=== PATIENT | male | born 1970 | race Caucasian/White ===

== ENCOUNTER 2017-12-08 16:26 | Emergency (ER) | payer MEDICAID ==
[~2017-12-08] VITALS: Ht 188 cm; Wt 92.6 kg
[~2017-12-08 16:26] MED LIST: PARO40TA PO; TRIA.1%T TOP; WELL150T PO; ZYRT10TA12 PO
[2017-12-08 16:47] VITALS: BP 125/69; PULSE 87; RESP 16; TEMP 98.6; O2SAT 100
[2017-12-08] MEDS ORDERED: PARO40TA2 PO (17:01)
--- NOTE | 2017-12-08 17:57 | PD ---
HPI Chief Complaint: Skin Problem Time Seen by Provider: 17:26 Travel History International Travel<30 days: No Contact w/Intl Traveler<30days: No Traveled to known affect area: No History of Present Illness HPI This is a 47-year-old male here with redness and swelling to his right lower extremity. Symptoms began after he sustained an insect bite to the right lower naik approximately 5-6 days ago. He denies fever chills. He reports the area is painful and pruritic. Pain is nonradiating. Symptom severity is moderate. No aggravating or alleviating factors. PFSH Past Medical History Depression: Yes Diminished Hearing: No Tetanus Vaccination: Unknown Past Surgical History Abdominal Surgery: Yes (HERNIORRHAPHY) Genitourinary Surgery: Yes (UNDESCENDED TESTICLES) Social History Alcohol Use: No Tobacco Use: No Substance Use: No Allergies-Medications (Allergen,Severity, Reaction): Coded Allergies: No Known Allergies (Unverified Adverse Reaction, Unknown, 12/08/17) Reported Meds & Prescriptions Reported Meds & Active Scripts Active Clindamycin (Clindamycin HCl) 300 Mg Cap 300 Mg PO Q6H 10 Days Reported Paroxetine (Paroxetine HCl) 40 Mg Tab 40 Mg PO DAILY Physical Exam Narrative GENERAL: Alert and well-appearing 47-year-old male SKIN: Warm and dry. 5x3 cm area of erythema to the right anterior naik. No fluctuance or induration. No lymphangitis HEAD: Normocephalic. EYES: No injection or drainage. NECK: Supple, trachea midline. CARDIOVASCULAR: Regular rate and rhythm RESPIRATORY: Breath sounds equal bilaterally. No accessory muscle use. GASTROINTESTINAL: Abdomen soft, non-tender, nondistended. MUSCULOSKELETAL: No cyanosis, or edema. Right lower extremely: See skin note above. No swelling. Normal sensation. 2+ DP pulses. BACK: Nontender without obvious deformity. No CVA tenderness. Data Data Last Documented VS Vital Signs Date Time Temp Pulse Resp B/P (MAP) Pulse Ox O2 Delivery O2 Flow Rate FiO2 12/08/17 16:47 98.6 87 16 125/69 (87) 100 MDM Medical Decision Making Medical Screen Exam Complete: Yes Emergency Medical Condition: Yes Differential Diagnosis Cellulitis, contact dermatitis, other Narrative Course 47-year-old male here with cellulitis to the right lower extremity. He is nontoxic appearing. Vital signs stable. He will be discharged home on clindamycin. Diagnosis Primary Impression: Cellulitis Qualified Codes: L03.115 - Cellulitis of right lower limb Referrals: Primary Care Physician Additional Instructions: Antibiotics as directed. Follow-up with her primary doctor. Return if he develop new or worsening symptoms. Scripts Clindamycin (Clindamycin) 300 Mg Cap 300 MG PO Q6H for Infection for 10 Days, #40 CAP 0 Refills Prov: Mari Berkowitz 12/08/17 Disposition: 01 DISCHARGE HOME Condition: Stable Mari Berkowitz Dec 08, 2017 17:57
[2017-12-08] MEDS ORDERED: CLIN300C5 PO (18:30)
== END 2017-12-08 18:48 | disposition home or self-care (01) ==
LOC: PHEFT 16:26
DX: L03.115 Cellulitis of right lower limb (principal); F32.9 Major depressive disorder, single episode, unspecified; Z79.899 Other long term (current) drug therapy
CPT/HCPCS: 99283

== ENCOUNTER 2017-12-17 19:26 | Emergency (ER) | payer MEDICAID ==
[~2017-12-17] VITALS: Ht 188 cm; Wt 92.5 kg
[~2017-12-17 19:26] MED LIST changes: +CLIN300C5 PO; -PARO40TA PO; +PARO40TA2 PO; -TRIA.1%T TOP; -WELL150T PO; -ZYRT10TA12 PO
[2017-12-17 19:44] VITALS: BP 121/63; PULSE 87; RESP 18; TEMP 98.1; O2SAT 98
[2017-12-17] MEDS ORDERED: SULFAMETHOXAZOLE-TRIMETHOPRIM DS 800-160 MG TAB PO ONE (20:30)
[2017-12-17] MEDS ORDERED: CEPHALEXIN MONOHYDRATE 500 MG CAP PO ONE (20:30)
[2017-12-17] MEDS ORDERED: FAMOTIDINE 20 MG TAB PO ONE (20:30)
[2017-12-17] MEDS ORDERED: diphenhydrAMINE HCL 50 MG CAP PO ONE (20:30)
[2017-12-17] MEDS ORDERED: DEXAMETHASONE SOD PHOS 4 MG/ML VIAL IM ONE (20:30)
[2017-12-17] MEDS ORDERED: CEPH-460 PO (20:31)
[2017-12-17] MEDS ORDERED: BACT800T5 PO (20:31)
--- NOTE | 2017-12-17 20:32 | PD ---
HPI Chief Complaint: Allergic/Adverse Reaction Time Seen by Provider: 19:49 Travel History International Travel<30 days: No Contact w/Intl Traveler<30days: No Traveled to known affect area: No History of Present Illness HPI 47-year-old male complains of rash about the chest and the back for 1 day. No respiratory distress. No fever. No pain. Itchiness is present. Patient reports compliance with clindamycin due to cellulitis of the right lower extremity. No new or different medication. No exposure to new soaps or different detergents of any kind potential environmental allergen otherwise. PFSH Past Medical History Depression: Yes Diminished Hearing: No Influenza Vaccination: No ?: Not Past Surgical History Abdominal Surgery: Yes (HERNIORRHAPHY) Genitourinary Surgery: Yes (UNDESCENDED TESTICLES) Social History Alcohol Use: No Tobacco Use: No Substance Use: No Allergies-Medications Reported Meds & Prescriptions Reported Meds & Active Scripts Active Clindamycin (Clindamycin HCl) 300 Mg Cap 300 Mg PO Q6H 10 Days Reported Paroxetine (Paroxetine HCl) 40 Mg Tab 40 Mg PO DAILY Review of Systems General / Constitutional: No: Fever Eyes: No: Diploplia HENT: No: Lightheadedness Cardiovascular: No: Chest Pain or Discomfort Physical Exam Narrative GENERAL: 47 yo M, WNWD, NAD SKIN: Blanching erythematous maculopapular rash involving the chest and the back. Minimal blanching maculopapular erythematous lesions are present about the right foot overlying some confluent erythema. HEAD: Normocephalic. EYES: No scleral icterus. No injection or drainage. NECK: Supple, trachea midline. No JVD or lymphadenopathy. CARDIOVASCULAR: Regular rate and rhythm without murmurs, gallops, or rubs. RESPIRATORY: Breath sounds equal bilaterally. No accessory muscle use. GASTROINTESTINAL: Abdomen soft, non-tender, nondistended. MUSCULOSKELETAL: No cyanosis, or edema. BACK: Nontender without obvious deformity. No CVA tenderness. Data Data Last Documented VS Vital Signs Date Time Temp Pulse Resp B/P (MAP) Pulse Ox O2 Delivery O2 Flow Rate FiO2 12/17/17 20:03 Room Air 12/17/17 19:44 98.1 87 18 121/63 (82) 98 Orders Orders Dexamethasone Inj (Decadron Inj) (12/17/17 20:30) Diphenhydramine (Benadryl) (12/17/17 20:30) Famotidine (Pepcid) (12/17/17 20:30) Cephalexin (Keflex) (12/17/17 20:30) Sulfamet-Trimeth Ds 800-160 Mg (Bactrim (12/17/17 20:30) MDM Medical Decision Making Medical Screen Exam Complete: Yes Emergency Medical Condition: Yes Medical Record Reviewed: Yes Differential Diagnosis reaction to clindamycin, environmental allergy, cellulitis Narrative Course Benadryl, Decadron, Pepcid given here with good effect Bactrim and Keflex prescriptions Patient is ready for discharge. Diagnosis Primary Impression: Allergic reaction Qualified Codes: T78.40XA - Allergy, unspecified, initial encounter Additional Instructions: YOUR RASH IS DUE TO AN ALLERGIC REACTION DUE TO CLINDAMYCIN. PLEASE STOP TAKING CLINDAMYCIN. REMEMBER TO STATE FROM NOW ON THAT YOU HAVE AN ALLERGY TO CLINDAMYCIN WHENEVER YOU SEE A DOCTOR. PLEASE TAKE THE BACTRIM DS AND KEFLEX UNTIL EVERY TABLET IS GONE. PLEASE RETURN TO THE ED IF THE RASH PERSISTS OR WORSENS. Med/Other Pt SpecificInfo: Prescription(s) given Scripts Sulfamethoxazole-Trimethoprim (Bactrim DS) 800-160 Mg Tab 1 TAB PO BID for Infection for 3 Days, #6 TAB 0 Refills Prov: Tres Whitlock MD 12/17/17 Cephalexin (Keflex) 500 Mg Cap 500 MG PO Q8H for Infection for 3 Days, #9 CAP 0 Refills Prov: Tres Whitlock MD 12/17/17 Disposition: 01 DISCHARGE HOME Condition: Stable Tres Whitlock MD Dec 17, 2017 20:32
== END 2017-12-17 21:11 | disposition home or self-care (01) ==
LOC: PHEFT 19:26
DX: T78.40XA Allergy, unspecified, initial encounter (principal)
CPT/HCPCS: 96372; 99283; J1100; Q0163